=== PATIENT | female | born 1965 | race Caucasian/White ===

== ENCOUNTER → 2022-08-03 12:24 | Outpatient (CLI) | payer OTHER, SELFPAY ==
--- NOTE | ~2022-08-03 | XR_ITS ---
XR knee LT min 4V DATE: 08/03/2022 12:58 INDICATION: Left knee pain TECHNIQUE: [place] and standing AP, PA and lateral COMPARISON: None FINDINGS: There is tricompartment osteoarthritis with prominent periarticular spurring of the patello femoral joint, moderate periarticular spurring at the medial and lateral compartments and severe join t space narrowing at the medial compartment. There is mild suprapatellar knee joint effusion. No fracture or dislocation, periosteal reaction or bone destruction, radiopaque intra-articular loose body or chondrocalcinosis. IMPRESSION: Tricompartment osteoarthritis, most severe at the medial compartment Reviewed, dictated and finalized at location B. IMPRESSION: Tricompartment osteoarthritis, most severe at the medial compartmen t
== END ==
PROVIDERS: PCP Family Medicine; Visit Provider Chiropractor
DX: M17.12 Unilateral primary osteoarthritis, left knee (principal)
CPT/HCPCS: 73564